=== PATIENT | male | born 1985 | race Caucasian/White ===

== ENCOUNTER 2019-01-26 16:35 | Emergency (ER) | payer SELFPAY, OTHER ==
[2019-01-26] MEDS: HYDROCODONE/APAP (5/325) TAB PO (20:35)
== END 2019-01-26 23:10 | disposition home or self-care (01) ==
LOC: FTE 16:35
DX: S42.115A Nondisplaced fracture of body of scapula, left shoulder, initial encounter for closed fracture (principal); V47.5XXA Car driver injured in collision with fixed or stationary object in traffic accident, initial encounter
CPT/HCPCS: 29105; 71250; 72040; 73030; 73060; 73200; 74176; 99284-25